=== PATIENT | female | born 1980 | race Two or more races ===

== ENCOUNTER 2022-04-07 19:55 | Emergency (ER) | payer OTHER ==
[~2022-04-07] VITALS: Ht 162.6 cm; Wt 64.9 kg
[2022-04-07] MEDS ORDERED: LORAZEPAM INJ 2 MG/ML VIAL IM ONE ×2 (20:00→21:00)
[2022-04-07] MEDS ORDERED: diphenhydrAMINE HCL 50 MG/ML VIAL IM ONE ×2 (20:00→22:00)
[2022-04-07] MEDS ORDERED: OLANZAPINE 10 MG VIAL IM ONE ×2 (20:00→20:04)
[2022-04-07] MEDS ORDERED: diphenhydrAMINE HCL 50 MG/ML VIAL ONE ×2 (20:04→21:41)
[2022-04-07] MEDS ORDERED: LORAZEPAM INJ 2 MG/ML VIAL ONE ×2 (20:05→21:05)
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
--- NOTE | 2022-04-07 21:44 | NUR ---
PT STILL RESTLESS AND UNCOOPERATIVE. ADMINISTERED BENADRYL 25MG IM ORDERED. WILL REASSESS
--- NOTE | 2022-04-07 22:46 | NUR ---
URINE COLLECTED AND SENT TO LAB
--- NOTE | 2022-04-07 22:46 | NUR ---
DIRECTOR OF MATERIALS MANAGEMENT AT PT'S BEDSIDE
[2022-04-07 22:54] LABS: BILIRUBIN,URINE SMALL (NEGATIVE); COLOR,URINE YELLOW (YELLOW); LEUKOCYTE ESTERASE ,URINE NEGATIVE (NEGATIVE); NITRITE, URINE NEGATIVE (NEGATIVE); PH,URINE 5.5 (5.0-8.0); PROTEIN,URINE NEGATIVE (NEGATIVE); UGLUCOSE NEGATIVE (NEGATIVE); UROBILINOGEN,URINE 0.2 EU/dL (0.2)
[2022-04-07 22:55] LABS: BASOPHILS % (AUTO) 0.6 % (0.0-2.0); EOSINOPHILS % (AUTO) 1.9 % (0.0-6.0); HEMATOCRIT 37 % (33-45); HEMOGLOBIN 12.5 g/dL (11.5-14.8); LYMPHOCYTES % (AUTO) 30.9 % (20.0-44.0); MEAN CORPUSCULAR HGB CONC 34 g/dl (31.0-36.0); MEAN CORPUSCULAR VOLUME 100 fL (82-100); MONOCYTES # (AUTO) 0.5 K/uL (0.1-1.30); MONOCYTES % (AUTO) 7.8 % (2.0-12.0); NEUTROPHILS # (AUTO) 3.8 K/uL (1.8-8.9); NEUTROPHILS % (AUTO) 58.8 % (43.0-81.0); PLATELET COUNT (AUTO) 276 K/uL (150-450); WHITE BLOOD COUNT (AUTO) 6.5 K/uL (4.3-11.0)
[2022-04-07 23:17] LABS: ALANINE AMINOTRANSFERASE 25 U/L (12-78); ALBUMIN 3.6 g/dL (3.4-5.0); ALCOHOL, BLOOD 26 mg/dL (0-0); ALKALINE PHOSPHATASE 56 U/L (46-116); ASPARTATE AMINOTRANSFERASE 27 U/L (15-37); BILIRUBIN,DIRECT 0.1 mg/dL (0.0-0.2); BILIRUBIN,TOTAL 0.4 mg/dL (0.2-1.0); CALCIUM, SERUM 8.2 mg/dL (8.5-10.1); CARBON DIOXIDE 23 mmol/L (21-32); CREATININE 0.7 mg/dL (0.6-1.3); GLUCOSE 87 mg/dL (74-106); TOTAL PROTEIN, SERUM 7.5 g/dL (6.4-8.2); UREA NITROGEN, BLOOD 17 mg/dL (7-18)
[2022-04-07 23:21] LABS: ACETAMINOPHEN < 2 ug/ml (10-30)
[2022-04-07 23:36] LABS: CHLORIDE 108 mmol/L (98-107); POTASSIUM 3.5 mmol/L (3.5-5.1); SODIUM SERUM 140 mmol/L (136-145)
--- NOTE | 2022-04-08 04:13 | NUR ---
PT SLEEPING IN BED. RESPIRATIONS EVEN AND NON LABORED ON R/A. SAFETY MEASURES IN PLACE.
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
--- NOTE | 2022-04-08 15:47 | NUR ---
SS Note: SS evaluated pt. and she is now cooperative. Pt. stated that she resides with her friend [would not provide address], and is able to go back. Pt. denies SI/HI. IVONNE provided pt. with a TAP card upon pt.'s request. IVONNE notified JAZMYN CARBALLO.
--- NOTE | 2022-04-08 15:57 | NUR ---
Patient discharged to home in stable condition. Written and verbal after care instructions given. Patient verbalizes understanding of instruction.
[2022-04-08 15:58] VITALS: BP 133/81
== END 2022-04-08 15:58 | disposition home or self-care (01) ==
LOC: ER 19:57 → EDBD 19:57 → ER 04-08 15:58
DX: F23 Brief psychotic disorder (principal); R45.1 Restlessness and agitation; F15.10 Other stimulant abuse, uncomplicated; F10.129 Alcohol abuse with intoxication, unspecified; F17.200 Nicotine dependence, unspecified, uncomplicated; Y90.1 Blood alcohol level of 20-39 mg/100 ml
CPT/HCPCS: 99285; 96372 ×2; 85025; 80048; 80076; 84703; 81003; 36415; 80143; 80320; 80307; J2060 ×2; J1200 ×2; J3490; G0480